=== PATIENT | female | born 1965 | race Caucasian/White ===

== ENCOUNTER → 2016-12-08 | Outpatient (CLI) | payer MEDICARE, MEDICAID ==
--- NOTE | ~2016-12-08 | PUL ---
PATIENT'S NAME: MILA STANFORD [facility] AGE: 51 Y [address] ROOM: [place] [address] LOCATION: [facility] ADMIT DATE: 12/08/2016 Pulmonary DISCHARGE DATE: FAMILY PHYSICIAN: Hortencia Collier MD ATTENDING PHYSICIAN: Hortencia Collier NAME OF PROCEDURE: Sleep study DATE OF PROCEDURE: 12/08/16 TECH: AMY Esparza TEST #: [facility]# [id number] MEDICAL HISTORY: Patient is a 51-year-old overweight woman with daytime sleepiness and snoring. SLEEP STAGE SUMMARY: Patient was studied for a total of 450 minutes of which she slept 404 minutes. She fell asleep in 11 minutes and slept for 90% of the night. Sleep architecture revealed a decline in slow wave and a mild decline in REM sleep. RESPIRATORY SUMMARY: This study was done to titrate CPAP which was started at 6 cm and titrated to 9 cm with excellent control of the respiratory events. EKG SUMMARY: No dysrhythmias were noted. LIMB MOVEMENT SUMMARY: Occasional periodic limb movements were noted. These do not appear to be clinically relevant. SUMMARY: Obstructive sleep apnea which appears well controlled on CPAP of 9 cm. PLAN: Suggest CPAP of 9 cm. Patient will receive results from the ordering provider. MD PARAG RICHARD/ /[id number] dtt: 12/30/16 1017 , Nathaniel Leon dtd: 12/13/16 1259
== END | disposition disaster alternative care site (69) ==
LOC: GSLP 20:39
DX: G47.33 Obstructive sleep apnea (adult) (pediatric) (principal)